=== PATIENT | male | born 1940 | race African-American/Black ===

== ENCOUNTER 2017-03-28 07:52 | Inpatient (IN) | payer OTHER ==
[~2017-03-28] VITALS: Ht 167.6 cm; Wt 81.3 kg
[~2017-03-28 07:52] MED LIST: BENADRYL50 MG PO; KEFLEX500 MG PO; KENALOG,ARISTOC80 GM TP
[2017-03-28 08:42] LABS: ADD MIUA? YES; BILIRUBIN NEGATIVE; BLOOD SMALL; GLUCOSE (STRIP) NEGATIVE; KETONES 20; LEUKOCYTES NEGATIVE; NITRITE NEGATIVE; PROTEIN (STRIP) NEGATIVE; SPECIFIC GRAVITY 1.026 (1.000-1.030)
[2017-03-28 08:43] LABS: COLOR DK YELLOW ((YELLOW))
[2017-03-28 08:49] LABS: BACTERIA NONE SEEN /HPF; CALCIUM OXALATE CRYSTALS 1+ /HPF; EPITHELIAL CELLS RARE /HPF; HYALINE CASTS 0-5 /LPF; MUCUS TRACE /LPF; WHITE BLOOD CELLS 0-5 /HPF (0-5)
[2017-03-28 09:03] LABS: EOSINOPHIL COUNT 0.1 K/uL (0-0.3); HEMATOCRIT 43.5 % (38.0-50.0); IMMATURE GRANULOCYTE (%) 0.5 % (0.0-0.7); IMMATURE GRANULOCYTE COUNT 0.1 K/uL; INSTRUMENT ABS NEUTROPHIL CT 7.6 K/uL; LYMPHOCYTE COUNT 1.5 K/uL (1.0-2.8); MCHC 32.6 G/DL (30.0-36.0); MCV 91.8 FL (86-99); MEAN PLAT.VOLUME 10.4 uM^3 (9.0-12.4); MONOCYTE (%) 14.2 % (3-12); MONOCYTE COUNT 1.5 K/uL (0-0.8); NEUTROPHIL COUNT 7.6 K/uL (1.8-6.4); PLATELET COUNT 224 K/uL (156-360); RBC DIS.WIDTH-SD 47.6 % (39-53); RED BLOOD COUNT 4.74 M/uL (4.00-5.50); WHITE BLOOD COUNT 10.9 K/uL (4.1-10.2)
[2017-03-28 09:31] LABS: ANION GAP 10 MEQ/L (2-14); CHLORIDE 93 MEQ/L (99-109); SAMPLE HEMOLYSIS CHECK 0; SAMPLE ICTERIC CHECK 0; SAMPLE LIPEMIA CHECK 0; SODIUM 131 MEQ/L (136-147); TOTAL BILIRUBIN 1.2 MG/DL (0.0-1.0)
[2017-03-28 10:07] LABS: ALKALINE PHOSPHATASE 63 IU/L (3-129); GFR ESTIMATE (CALCULATED) 59 mL/min/; GLUCOSE 98 mg/dL (70-99); LIPASE 1042 U/L (1.0-51.0); UREA NITROGEN (BUN) 23 mg/dL (9-23)
[2017-03-28] MEDS ORDERED: HYDROCHLOROTHIA25 MG PO (11:49)
[2017-03-28] MEDS ORDERED: ZANTAC150 MG PO (11:49)
[2017-03-28] MEDS ORDERED: DEPAKOTE250 MG PO (11:49)
[2017-03-28] MEDS ORDERED: TOPROL XL25 MG PO (11:50)
[2017-03-28] MEDS ORDERED: IMITREX100 MG PO (11:50)
[2017-03-28] MEDS ORDERED: ONE DAILY TABL1 EAC1 PO (11:51)
[2017-03-28 14:00] LABS: TRIGLYCERIDES 70 MG/DL (Normal: <150)
[2017-03-28 15:19] VITALS: BP 132/101
[2017-03-28 23:30] VITALS: BP 144/77
[2017-03-29 06:08] LABS: EOSINOPHIL (%) 1.4 % (0-5); EOSINOPHIL COUNT 0.2 K/uL (0-0.3); HEMATOCRIT 38.9 % (38.0-50.0); IMMATURE GRANULOCYTE (%) 0.3 % (0.0-0.7); INSTRUMENT ABS NEUTROPHIL CT 8.3 K/uL; LYMPHOCYTE COUNT 1.4 K/uL (1.0-2.8); MCH 29.7 PG (29.0-34.0); MCHC 33.4 G/DL (30.0-36.0); MCV 88.8 FL (86-99); MEAN PLAT.VOLUME 10.7 uM^3 (9.0-12.4); MONOCYTE (%) 15.7 % (3-12); MONOCYTE COUNT 1.9 K/uL (0-0.8); NEUTROPHIL (%) 70.2 % (45-76); NEUTROPHIL COUNT 8.3 K/uL (1.8-6.4); PLATELET COUNT 232 K/uL (156-360); RBC DIS.WIDTH-CV 13.7 % (11.8-14.6); RBC DIS.WIDTH-SD 44.7 % (39-53); RED BLOOD COUNT 4.38 M/uL (4.00-5.50); WHITE BLOOD COUNT 11.8 K/uL (4.1-10.2)
[2017-03-29 06:33] LABS: AMYLASE 240 IU/L (1-118); LIPASE 122 U/L (1.0-51.0)
[2017-03-29 07:10] VITALS: BP 140/71
[2017-03-29 15:45] VITALS: BP 159/72
[2017-03-30] VITALS: BP 154/77
[2017-03-30 08:13] VITALS: BP 147/82
== END 2017-03-30 16:37 | disposition home or self-care (01) | DRG 440 ==
LOC: EME 07:52 → 5SOUTH 11:53 → EDOF 11:53 → ENRESERV 12:03 → 5SOUTH 14:44
PROVIDERS: Emergency Medicine; Internal Medicine
DX: K85.90 Acute pancreatitis without necrosis or infection, unspecified (principal); I12.9 Hypertensive chronic kidney disease with stage 1 through stage 4 chronic kidney disease, or unspecified chronic kidney disease; J45.909 Unspecified asthma, uncomplicated; N18.2 Chronic kidney disease, stage 2 (mild); G43.909 Migraine, unspecified, not intractable, without status migrainosus; K21.9 Gastro-esophageal reflux disease without esophagitis
CPT/HCPCS: 74177; 76705; 80053; 81003; 82150; 83690; 84478; 85025; 90686; 99281; 99284; J1650; J2270; J2405; J7030; J7042

== ENCOUNTER 2017-06-17 11:59 | Inpatient (IN) | payer OTHER ==
[2017-06-17] VITALS (9 sets, daily range): BP systolic 122–174; BP diastolic 69–96
[~2017-06-17] VITALS: Ht 167.6 cm; Wt 79.6 kg
[~2017-06-17 11:59] MED LIST changes: +DEPAKOTE250 MG PO; +HYDROCHLOROTHIA25 MG PO; +IMITREX100 MG PO; +ONE DAILY TABL1 EAC1 PO; +TOPROL XL25 MG PO; +ZANTAC150 MG PO
[2017-06-17 12:19] LABS: POINT-OF-CARE METER ID UU13113747
[2017-06-17 12:21] LABS: BASOPHIL COUNT 0.1 K/uL (0-0.1); EOSINOPHIL (%) 11.8 % (0-5); EOSINOPHIL COUNT 0.7 K/uL (0-0.3); HEMATOCRIT 44.6 % (38.0-50.0); IMMATURE GRANULOCYTE (%) 0.2 % (0.0-0.7); INSTRUMENT ABS NEUTROPHIL CT 1.9 K/uL; LYMPHOCYTE COUNT 2.8 K/uL (1.0-2.8); MCH 30.6 PG (29.0-34.0); MCHC 33.2 G/DL (30.0-36.0); MCV 92.3 FL (86-99); MEAN PLAT.VOLUME 10.9 uM^3 (9.0-12.4); MONOCYTE (%) 8.8 % (3-12); MONOCYTE COUNT 0.5 K/uL (0-0.8); NEUTROPHIL (%) 31.7 % (45-76); NEUTROPHIL COUNT 1.9 K/uL (1.8-6.4); PLATELET COUNT 253 K/uL (156-360); RBC DIS.WIDTH-CV 14.9 % (11.8-14.6); RBC DIS.WIDTH-SD 50.8 % (39-53); RED BLOOD COUNT 4.83 M/uL (4.00-5.50)
[2017-06-17 12:26] LABS: INTER. NORMALIZED RATIO 1.1; PROTHROMBIN TIME 12.1 SEC (10.2-12.9)
[2017-06-17 12:29] LABS: PTT 34.6 SEC (25-37)
[2017-06-17 12:37] LABS: AMYLASE 104 IU/L (1-118); ANION GAP 9 MEQ/L (2-14); CHLORIDE 100 MEQ/L (99-109); POTASSIUM 3.8 MEQ/L (3.7-5.4); SAMPLE HEMOLYSIS CHECK 0; SAMPLE ICTERIC CHECK 0; SAMPLE LIPEMIA CHECK 0; SODIUM 136 MEQ/L (136-147)
[2017-06-17 12:42] LABS: TROP-I INTERPRETATION NEGATIVE; TROPONIN-I < 0.01 ng/mL (0.0-0.30)
[2017-06-17 12:46] LABS: GFR ESTIMATE (CALCULATED) 54 mL/min/ (58.99-99999); GLUCOSE 137 mg/dL (70-99); LIPASE 18 U/L (1.0-51.0); SERUM ETHYL ALCOHOL < 10 mg/dL; UREA NITROGEN (BUN) 21 mg/dL (9-23)
[2017-06-17 15:09] LABS: ADD MIUA? NO; BILIRUBIN NEGATIVE; BLOOD NEGATIVE; COLOR YELLOW ((YELLOW)); GLUCOSE (STRIP) NEGATIVE; KETONES NEGATIVE; LEUKOCYTES NEGATIVE; NITRITE NEGATIVE; PROTEIN (STRIP) NEGATIVE; SPECIFIC GRAVITY 1.008 (1.000-1.030); UCUL ADDED? NO; UROBILINOGEN 0.2 MG/DL (0.2-1.0)
[2017-06-17 15:18] LABS: AMPHETAMINE NEGATIVE (500 ng/mL); BARBITURATES NEGATIVE (200 ng/mL); BENZODIAZEPINES NEGATIVE (150 ng/mL); COCAINE NEGATIVE (150 ng/mL); INTERNAL CONTROLS VALID? YES; METHADONE NEGATIVE (200 ng/mL); METHAMPHETAMINE NEGATIVE (500 ng/mL); OPIATES (MORPHINE) NEGATIVE (100 ng/mL); OXYCODONE NEGATIVE (100 ng/mL); PHENCYCLIDINE NEGATIVE (25 ng/mL); PROPOXYPHENE NEGATIVE (300 ng/mL); THC CANNABINOIDS NEGATIVE (50 ng/mL); TRICYCLIC ANTIDEPRESSANTS NEGATIVE (300 ng/mL)
[2017-06-17 17:38] LABS: METH RESISTANT S AUREUS PCR POSITIVE (NEGATIVE)
[2017-06-17 17:52] LABS: PROBE CHECK PASS
[2017-06-18] VITALS (16 sets, daily range): BP systolic 116–161; BP diastolic 57–82
[2017-06-18 05:39] LABS: BASOPHIL COUNT 0.1 K/uL (0-0.1); EOSINOPHIL (%) 11.2 % (0-5); EOSINOPHIL COUNT 0.6 K/uL (0-0.3); HEMATOCRIT 40.3 % (38.0-50.0); IMMATURE GRANULOCYTE (%) 0.4 % (0.0-0.7); INSTRUMENT ABS NEUTROPHIL CT 2.6 K/uL; LYMPHOCYTE COUNT 1.5 K/uL (1.0-2.8); MCH 30.6 PG (29.0-34.0); MCHC 33.3 G/DL (30.0-36.0); MEAN PLAT.VOLUME 11.7 uM^3 (9.0-12.4); MONOCYTE (%) 14.2 % (3-12); MONOCYTE COUNT 0.8 K/uL (0-0.8); NEUTROPHIL (%) 46.7 % (45-76); NEUTROPHIL COUNT 2.6 K/uL (1.8-6.4); PLATELET COUNT 217 K/uL (156-360); RBC DIS.WIDTH-CV 15.2 % (11.8-14.6); RED BLOOD COUNT 4.38 M/uL (4.00-5.50); WHITE BLOOD COUNT 5.6 K/uL (4.1-10.2)
[2017-06-18 06:12] LABS: HDL CHOLESTEROL 41 MG/DL (Desirable>=40); LDL CHOLESTEROL 123 mg/dL (Desirable<100); NON-HDL CHOLESTEROL 144 mg/dL (Desirable<160); TOTAL CHOLESTEROL 185 mg/dL (Desirable<200); TRIGLYCERIDES 105 MG/DL (Normal: <150)
[2017-06-18 06:15] LABS: ANION GAP 8 MEQ/L (2-14); CHLORIDE 101 MEQ/L (99-109); GFR ESTIMATE (CALCULATED) 54 mL/min/ (58.99-99999); MAGNESIUM 1.9 mg/dl (1.3-2.7); POTASSIUM 3.9 MEQ/L (3.7-5.4); SAMPLE HEMOLYSIS CHECK 0; SAMPLE ICTERIC CHECK 0; SAMPLE LIPEMIA CHECK 0; SODIUM 137 MEQ/L (136-147); UREA NITROGEN (BUN) 21 mg/dL (9-23)
[2017-06-18 06:17] LABS: GLUCOSE 78 mg/dL (70-99)
[2017-06-18 10:52] LABS: Estimated Average Glucose 114 mg/dL (70-123); HEMOGLOBIN A1c (GLYCOHEMOGLOB) 5.6 % HGB (Below 5.7)
[2017-06-19 04:01] VITALS: BP 157/78
[2017-06-19 08:00] VITALS: BP 132/78
[2017-06-19 12:00] VITALS: BP 136/78
[2017-06-19] MEDS ORDERED: ATORVASTATIN CA40 MG PO (13:01)
[2017-06-19] MEDS ORDERED: ASPIR-LOW81 MG PO (13:02)
== END 2017-06-19 17:10 | disposition home or self-care (01) | DRG 63 ==
LOC: EME 11:59 → 4WEST 15:02 → EDOF 15:02 → ENRESERV 15:03 → 4WEST 16:01 → ENRESERV 06-18 10:19 → CANRESERV 06-18 10:19 → 4WEST 06-18 12:18 → ENRESERV 06-18 15:07 → 4WEST 06-18 16:02 → 5SOUTH 06-18 19:15
PROVIDERS: Emergency Medicine; Specialist
DX: G45.9 Transient cerebral ischemic attack, unspecified (principal); R29.702 NIHSS score 2; R79.89 Other specified abnormal findings of blood chemistry; I12.9 Hypertensive chronic kidney disease with stage 1 through stage 4 chronic kidney disease, or unspecified chronic kidney disease; N18.2 Chronic kidney disease, stage 2 (mild); E78.5 Hyperlipidemia, unspecified; K21.9 Gastro-esophageal reflux disease without esophagitis; G43.109 Migraine with aura, not intractable, without status migrainosus; J45.909 Unspecified asthma, uncomplicated
CPT/HCPCS: 70450; 70496; 70498; 70551; 80048; 80061; 81003; 82150; 82948; 83036; 83690; 83735; 84100; 84484; 85025; 85610; 85730; 86850; 86900; 86901; 87641; 93005; 99281; 99285; G0480; J1644; J2997; J7030; J7050